=== PATIENT | female | born 1950 | race Caucasian/White ===

== ENCOUNTER 2021-01-30 09:37 | Day surgery (SDC) | payer MEDICARE, OTHER ==
[2021-01-30] MEDS: Polymyxin B/Trimethoprim 10 ML Bottle EYELF SCH ×4 (10:25→12:10)
[2021-01-30] MEDS: Brimonidine 0.2% Ophth Soln 5 ML Bottle EYELF SCH ×4 (10:30→12:10)
[2021-01-30] MEDS: Phenylephrine 2.5% Ophth Soln 2 ML Bot EYELF SCH ×6 (10:34→11:45)
[2021-01-30] MEDS: Tropicamide 1% Ophth Soln 15 ML Bottle EYELF SCH ×4 (10:42→11:26)
--- NOTE | 2021-01-30 10:49 | PCM.PREANE ---
Preanesthetic Assessment - Procedure Proposed Procedure: left cataract - Anesthesia/Transfusion/Family Hx Anesthesia History: Prior Anesthesia Without Reaction Family History of Anesthesia Reaction: No Transfusion History: No Prior Transfusion(s) - Review of Systems General: No Symptoms Pulmonary: No Symptoms Cardiovascular: No Symptoms Gastrointestinal: No Symptoms Neurological: No Symptoms Other: Reports: Thyroid Problems - Physical Assessment NPO Status Date: 01/29/21 NPO Status Time: 20:30 Vital Signs: Last Vital Signs Temp 97.9 F 01/30/21 10:10 Pulse 66 01/30/21 10:10 Resp 16 01/30/21 10:10 BP 131/64 01/30/21 10:10 Pulse Ox 100 01/30/21 10:10 Height: 5 ft 8 in Weight: 61.235 kg ASA Class: 2 Mental Status: Alert & Oriented x3 Airway Class: Mallampati = 1 Dentition: Reports: Normal Dentition Thyro-Mental Finger Breadths: 3 Mouth Opening Finger Breadths: 3 ROM/Head Extension: Full Lungs: Clear to Auscultation, Normal Respiratory Effort Cardiovascular: Regular Rate, Regular Rhythm - Allergies Allergies/Adverse Reactions: Allergies Allergy/AdvReac Type Severity Reaction Status Date / Time No Known Allergies Allergy Verified 01/30/21 10:30 - Blood Blood Available: No - Acknowledgements Anesthesia Type Planned: MAC Pt an Appropriate Candidate for the Planned Anesthesia: Yes Alternatives and Risks of Anesthesia Discussed w Pt/Guardian: Yes Pt/Guardian Understands and Agrees with Anesthesia Plan: Yes PreAnesthesia Questionnaire Cardiovascular History: Reports: Other (See Below) (tachycardia on beta gogo) Respiratory History: Reports: None Gastrointestinal History: Reports: None Musculoskeletal History: Reports: None Psychiatric History: Reports: None Oncologic (Cancer) History: Reports: Breast (21 years ago) - Past Surgical History Female Surgical History: Reports: Hysterectomy, Other (See Below) (lumpec beka) - SUBSTANCE USE Tobacco Use Status *Q: Current Every Day Tobacco User Tobacco Use Within Last Twelve Months: No Second Hand Smoke Exposure: No Days Per Week of Alcohol Use: 0 Recreational Drug Use History: No - HOME MEDS Home Medications: Home Meds Levothyroxine [Synthroid] 50 mcg PO ACBREAKFAST 01/29/21 [History] Metoprolol Tartrate 25 mg PO DAILY 01/29/21 [History] predniSONE [Prednisone] 5 mg PO DAILY 01/29/21 [History] - CURRENT (IN HOUSE) MEDS Current Meds: Current Medications Brimonidine Tartrate (Brimonidine 0.2% Ophth Soln 5 Ml Bottle) 0 ml EYELF ASDIRECTED ZAINAB Stop: 01/30/21 23:00 Last Admin: 01/30/21 10:30 Dose: 1 drop Documented by: Cefuroxime Sodium (Cefuroxime 10 Mg/Ml Syringe) 0 mg EYELF ASDIRECTED ZAINAB Stop: 01/30/21 23:00 Lidocaine HCl (Lidocaine 1% Pf 2 Ml Sdv) 0 ml INJECT ASDIRECTED ZAINAB Stop: 01/30/21 23:00 Phenylephrine HCl (Phenylephrine 2.5% Ophth Soln 2 Ml Bot) 0 ml EYELF ASDIRECTED ZAINAB Stop: 01/30/21 23:00 Last Admin: 01/30/21 10:34 Dose: 1 drop Documented by: Pilocarpine HCl (Pilocarpine 4% Ophth Soln 15 Ml Bot) 0 ml EYELF ASDIRECTED ZAINAB Stop: 01/30/21 23:00 Polymyxin/Trimethoprim Sulfate (Polymyxin B/Trimethoprim 10 Ml Bottle) 0 ml EYELF ASDIRECTED ZAINAB Stop: 01/30/21 23:00 Last Admin: 01/30/21 10:25 Dose: 1 drop Documented by: Tetracaine HCl (Tetracaine Hcl/Pf 0.5% 4 Ml Bottle) 0 ml EYEBOTH ASDIRECTED ZAINAB Stop: 01/30/21 23:00 Tropicamide (Tropicamide 1% Ophth Soln 15 Ml Bottle) 0 ml EYELF ASDIRECTED ZAINAB Stop: 01/30/21 23:00 Last Admin: 01/30/21 10:42 Dose: 1 drop Documented by:
[2021-01-30] MEDS: Cefuroxime 10 MG/ML SYRINGE EYELF SCH ×2 (11:27→12:08)
[2021-01-30] MEDS: Tetracaine HCl/PF 0.5% 4 ML Bottle EYEBOTH SCH ×4 (11:27→11:54)
[2021-01-30] MEDS: Lidocaine 1% PF 2 ML SDV INJECT SCH ×2 (11:27→11:55)
[2021-01-30] MEDS: Pilocarpine 4% Ophth Soln 15 ML Bot EYELF SCH ×2 (11:28→12:10)
--- NOTE | 2021-01-30 12:11 | PCM48HPAN ---
Post Anesthesia Note - EVALUATION WITHIN 48HRS OF ANESTHETIC Vital Signs in Normal Range: Yes Patient Participated in Evaluation: Yes Respiratory Function Stable: Yes Airway Patent: Yes Cardiovascular Function Stable: Yes Hydration Status Stable: Yes Pain Control Satisfactory: Yes Nausea and Vomiting Control Satisfactory: Yes Mental Status Recovered: Yes Vital Signs: Last Vital Signs Temp 36.6 C 01/30/21 10:10 Pulse 66 01/30/21 10:10 Resp 16 01/30/21 10:10 BP 131/64 01/30/21 10:10 Pulse Ox 100 01/30/21 10:10
== END 2021-01-30 12:16 | disposition home or self-care (01) ==
LOC: JD.SDS 09:37
PROVIDERS: ATTEND Ophthalmology
DX: H25.812 Combined forms of age-related cataract, left eye (principal); H44.23 Degenerative myopia, bilateral; H17.813 Minor opacity of cornea, bilateral; H16.223 Keratoconjunctivitis sicca, not specified as Sjogren's, bilateral; H02.831 Dermatochalasis of right upper eyelid; H02.834 Dermatochalasis of left upper eyelid; Z98.890 Other specified postprocedural states; F17.200 Nicotine dependence, unspecified, uncomplicated; Z88.5 Allergy status to narcotic agent; Z96.1 Presence of intraocular lens
CPT/HCPCS: 66984; J0697; V2632

== ENCOUNTER 2021-03-07 14:30 | Emergency (ER) | payer MEDICARE, OTHER | END 2021-03-07 14:56 | disposition left against medical advice (07) | LOC: JD.ED 14:30 | DX: Z53.21 Procedure and treatment not carried out due to patient leaving prior to being seen by health care provider (principal) ==

== ENCOUNTER 2022-05-11 13:59 | Emergency (ER) | payer MEDICARE, OTHER ==
[2022-05-11] MEDS ORDERED: Metoprolol Tartrate 50 MG Tab PO ONE (15:36)
[2022-05-11] MEDS ORDERED: Sodium Chloride 0.9% 1,000 ML IV ONE (16:12)
[2022-05-11] MEDS ORDERED: Sodium Chloride 0.9% 10 ML Syringe FLUSH PRN (16:12)
[2022-05-11] MEDS ORDERED: Diltiazem 25 MG/5 ML SDV IVPUSH ONE (16:13)
== END 2022-05-11 17:55 | disposition home or self-care (01) ==
LOC: JD.ED 13:59
DX: R00.2 Palpitations (principal); Z88.5 Allergy status to narcotic agent; Z88.4 Allergy status to anesthetic agent
CPT/HCPCS: 36415; 80053; 83735; 84443; 84484; 85025; 85379; 85610; 93005; 96361; 96374; 99285; A9270; J3490; J7030